=== PATIENT | female | born 1985 | race African-American/Black ===

== ENCOUNTER 2017-08-16 14:46 | Emergency (ER) | payer BC ==
--- NOTE | 2017-08-16 15:52 | ED PDOC ---
HPI: General Adult Time Seen by Provider: 08/16/17 15:18 Chief Complaint (Nursing): ENT Problem Chief Complaint (Provider): left side facial pain and headache History Per: Patient History/Exam Limitations: no limitations Onset/Duration Of Symptoms: Days (x2) Current Symptoms Are (Timing): Still Present Recently: Treated By A Physician Additional Complaint(s): Norris Del Cid is a 32 year old female, with no significant past medical history , who presents to the emergency department complaining of left facial pain and left sided headache onset for 2 days. Patient also reports congestion and left ear pain. Patient states she was seen on Tuesday by her PMD for runny nose and sore throat and she was prescribed Azithromycin and Promethazine. She took Advil yesterday but with no improvement of pain. She denies any vision changes, fever, chills, nausea, vomit or dizziness. Patient states prescribed meds have not helped with symptoms. PMD: [facility] [place] Past Medical History Reviewed: Historical Data, Nursing Documentation, Vital Signs Vital Signs: Last Vital Signs Temp 97.8 F 08/16/17 17:24 Pulse 78 08/16/17 17:24 Resp 18 08/16/17 17:24 BP 108/68 08/16/17 17:24 Pulse Ox 100 08/16/17 17:34 - Medical History PMH: No Chronic Diseases - Surgical History Surgical History: (x 2) - Family History Family History: States: No Known Family Hx - Living Arrangements Living Arrangements: With Family - Social History Current smoker - smoking cessation education provided: No Alcohol: None Drugs: Denies - Home Medications Home Medications: Ambulatory Orders Medication Instructions Recorded Fluticasone Nasal [Flonase] 1 spray NS DAILY #1 spr 08/16/17 Levofloxacin [Levaquin] 500 mg PO DAILY #7 tablet 08/16/17 Methylprednisolone [Medrol Dose 4 mg PO ASDIR #21 mg 08/16/17 Pack (21 tabs)] - Allergies Allergies/Adverse Reactions: Allergies Allergy/AdvReac Type Severity Reaction Status Date / Time No Known Allergies Allergy Verified 08/16/17 15:01 Review of Systems ROS Statement: Except As Marked, All Systems Reviewed And Found Negative Constitutional: Negative for: Fever, Chills Eyes: Negative for: Vision Change ENT: Positive for: Nose Congestion (and sinus) Gastrointestinal: Negative for: Nausea, Vomiting Neurological: Positive for: Headache (left sided and left facial pain). Negative for: Dizziness Physical Exam - Reviewed Nursing Documentation Reviewed: Yes Vital Signs Reviewed: Yes - Physical Exam Appears: Positive for: Non-toxic, No Acute Distress Head Exam: Positive for: ATRAUMATIC, NORMAL INSPECTION, NORMOCEPHALIC Skin: Positive for: Normal Color. Negative for: Rash Eye Exam: Positive for: Normal appearance, EOMI, PERRL ENT: Positive for: Normal ENT Inspection Neck: Positive for: Painless ROM, Supple. Negative for: Pain On Movement Of Neck Cardiovascular/Chest: Positive for: Regular Rate, Rhythm. Negative for: Murmur Respiratory: Positive for: Normal Breath Sounds. Negative for: Respiratory Distress Gastrointestinal/Abdominal: Positive for: Normal Exam, Soft. Negative for: Tenderness Extremity: Positive for: Normal ROM. Negative for: Tenderness, Deformity, Swelling Neurologic/Psych: Positive for: Alert, messenger office II-XII (grossly intact), Oriented. Negative for: Motor/Sensory Deficits, Aphasia, Facial Droop - Laboratory Results Urine POC: Negative - ECG O2 Sat by Pulse Oximetry: 100 (RA) Pulse Ox Interpretation: Normal - Other Rad CT head X-Ray: Read By Radiologist X-Ray Interpretation: see below Medical Decision Making Medical Decision Making: Initial Impression: 32 y/o female with left side facial pain and headache Initial Plan: --Head w/o contrast [CT] --Tylenol 325mg tab 975 mg PO --Motrin tab 600 mg PO --Reglan 10 mg IM --Influenza A B --Reevaluation Flu is negative 16:[address] FINDINGS: HEMORRHAGE: No intracranial hemorrhage. BRAIN: No mass effect or edema. No atrophy or chronic microvascular ischemic changes. VENTRICLES: No hydrocephalus. CALVARIUM: Unremarkable. PARANASAL SINUSES: Partially imaged paranasal sinuses; fluid and mucosal thickening involving the left greater than right ethmoid air cells, the left maxillary sinus, left frontal sinus, and left sphenoid sinus. MASTOID AIR CELLS: Unremarkable as visualized. No inflammatory changes. OTHER FINDINGS: None. IMPRESSION: No acute intracranial pathology identified. Partially imaged paranasal sinuses demonstrate: Fluid and mucosal thickening involving the left greater than right ethmoid air cells, left maxillary sinus, left frontal sinus, and left sphenoid sinus. Correlate clinically for acute sinusitis. Patient is aware of CT findings. She states pain is now resolved. Will d/c with rx levaqun, flonase and medrol dose pack. Also advised patient to continue with NSAID's for pain. ENT referral given. ~ Scribe Attestation: Documented by Hussein Lott, acting as a scribe for Magy Champagne PA-C. Provider Scribe Attestation: All medical record entries made by the Scribe were at my direction and personally dictated by me. I have reviewed the chart and agree that the record accurately reflects my personal performance of the history, physical exam, medical decision making, and the department course for this patient. I have also personally directed, reviewed, and agree with the discharge instructions and disposition. Disposition - Clinical Impression Clinical Impression: Sinusitis - Patient ED Disposition Is Patient to be Admitted: No Counseled Patient/Family Regarding: Studies Performed, Diagnosis, Need For Followup, Rx Given - Disposition Referrals: Jose Riddle MD [Staff Provider] - Disposition: Routine/Home Disposition Time: 17:02 Condition: IMPROVED Additional Instructions: Stop taking current antibiotics and take new rx meds instead. Take 3 advil every 6 hrs along with 2 tylenol for pain. You can take the advil and tylenol with the rest of the prescribed meds. If symptoms persist, follow up with ear , nose and throat (ENT) specialist. Prescriptions: Fluticasone Nasal [Flonase] 1 spray NS DAILY #1 spr Levofloxacin [Levaquin] 500 mg PO DAILY #7 tablet Methylprednisolone [Medrol Dose Pack (21 tabs)] 4 mg PO ASDIR #21 mg Instructions: Sinusitis in Adults Forms: [facility] (Irish), [facility] ED School/Work Excuse
--- NOTE | 2017-08-16 16:47 | CT ---
PROCEDURE: CT HEAD WITHOUT CONTRAST. HISTORY: left side headache COMPARISON: None available. TECHNIQUE: Axial computed tomography images were obtained through the head/brain without intravenous contrast. Radiation dose: Total exam DLP = 836.08 mGy-cm. This CT exam was performed using one or more of the following dose reduction techniques: Automated exposure control, adjustment of the mA and/or kV according to patient size, and/or use of iterative reconstruction technique. FINDINGS: HEMORRHAGE: No intracranial hemorrhage. BRAIN: No mass effect or edema. No atrophy or chronic microvascular ischemic changes. VENTRICLES: No hydrocephalus. CALVARIUM: Unremarkable. PARANASAL SINUSES: Partially imaged paranasal sinuses; fluid and mucosal thickening involving the left greater than right ethmoid air cells, the left maxillary sinus, left frontal sinus, and left sphenoid sinus. MASTOID AIR CELLS: Unremarkable as visualized. No inflammatory changes. OTHER FINDINGS: None. IMPRESSION: No acute intracranial pathology identified. Partially imaged paranasal sinuses demonstrate: Fluid and mucosal thickening involving the left greater than right ethmoid air cells, left maxillary sinus, left frontal sinus, and left sphenoid sinus. Correlate clinically for acute sinusitis.
[2017-08-16 17:25] VITALS: BP 108/68; PULSE 78; RESP 18; TEMP 97.8
[2017-08-16 17:34] VITALS: O2SAT 100
== END 2017-08-16 17:48 | disposition home or self-care (01) ==
LOC: H.ER 14:46
DX: J01.90 Acute sinusitis, unspecified (principal)
CPT/HCPCS: 70450; 81025; 87804; 96372; 99282; J2765